=== PATIENT | female | born 1940 | race Caucasian/White ===

== ENCOUNTER → 2018-09-05 | Outpatient (CLI) | payer OTHER ==
[~2018-09-05] MED LIST: ATENOLOL 50 MG50 M1 PO; HYDROCODONE-AP1 EAC6 PO
== END ==
LOC: CAT 10:20
DX: Z13.6 Encounter for screening for cardiovascular disorders (principal); E78.00 Pure hypercholesterolemia, unspecified; Z82.49 Family history of ischemic heart disease and other diseases of the circulatory system

== ENCOUNTER → 2018-09-05 | Outpatient (CLI) | payer OTHER | LOC: RAD 10:07 | DX: J44.9 Chronic obstructive pulmonary disease, unspecified (principal) ==

== ENCOUNTER → 2020-02-14 | Outpatient (CLI) | payer OTHER | LOC: SJCVCIMAG 07:49 | PROVIDERS: ATTEND Internal Medicine Cardiovascular Disease | DX: E04.2 Nontoxic multinodular goiter (principal); Z87.891 Personal history of nicotine dependence ==

== ENCOUNTER → 2020-11-17 | Outpatient (CLI) | payer OTHER | LOC: SJCVCIMAG 11:53 | PROVIDERS: ATTEND Internal Medicine Cardiovascular Disease | DX: I07.1 Rheumatic tricuspid insufficiency (principal); I27.20 Pulmonary hypertension, unspecified; R06.02 Shortness of breath; I10 Essential (primary) hypertension; E78.00 Pure hypercholesterolemia, unspecified; R00.0 Tachycardia, unspecified; E78.5 Hyperlipidemia, unspecified; G47.33 Obstructive sleep apnea (adult) (pediatric); Z79.82 Long term (current) use of aspirin; Z79.899 Other long term (current) drug therapy; Z86.73 Personal history of transient ischemic attack (TIA), and cerebral infarction without residual deficits; Z87.891 Personal history of nicotine dependence; Z82.49 Family history of ischemic heart disease and other diseases of the circulatory system ==

== ENCOUNTER → 2020-12-12 | Outpatient (CLI) | payer OTHER | LOC: SJCVC 10:24 | PROVIDERS: ATTEND Internal Medicine Cardiovascular Disease | DX: I07.1 Rheumatic tricuspid insufficiency (principal); R06.00 Dyspnea, unspecified; R00.0 Tachycardia, unspecified; I77.9 Disorder of arteries and arterioles, unspecified; I10 Essential (primary) hypertension; E78.00 Pure hypercholesterolemia, unspecified; E78.5 Hyperlipidemia, unspecified; R53.83 Other fatigue; G47.33 Obstructive sleep apnea (adult) (pediatric); Z79.82 Long term (current) use of aspirin; Z79.899 Other long term (current) drug therapy; Z86.73 Personal history of transient ischemic attack (TIA), and cerebral infarction without residual deficits; Z87.891 Personal history of nicotine dependence ==

== ENCOUNTER → 2021-02-24 | Outpatient (CLI) | payer OTHER | LOC: SJCVCIMAG 10:09 | PROVIDERS: ATTEND Internal Medicine Cardiovascular Disease | DX: I08.2 Rheumatic disorders of both aortic and tricuspid valves (principal); I10 Essential (primary) hypertension; R00.0 Tachycardia, unspecified; R94.31 Abnormal electrocardiogram [ECG] [EKG]; I49.3 Ventricular premature depolarization; E78.5 Hyperlipidemia, unspecified; I65.23 Occlusion and stenosis of bilateral carotid arteries; Z79.82 Long term (current) use of aspirin; Z79.899 Other long term (current) drug therapy ==

== ENCOUNTER → 2021-03-10 | Outpatient (CLI) | payer OTHER ==
[~2021-03-10] VITALS: Ht 165.1 cm; Wt 77.1 kg
[~2021-03-10] MED LIST changes: +ASA81BEC PO; +BENICAR20 MG PO; +COQ-10100 MG PO; +K2-4545 MCG PO; +MAGNESIUM250 M1 PO; +RESVERATROL50 MG PO; +TOPROL XL50 MG PO; +TORSEMIDE10 MG PO; +VITAMIN A10000 UNI3; +VITAMIN B-121000 MC2 PO; +VITAMIN D31250 MC1 PO; +VITAMIN E1000 UNIT PO
[2021-03-10 08:41] VITALS: BP 118/61
[2021-03-10 08:48] LABS: ABSOLUTE NEUTROPHILS 4.5 thou/uL (1.4-8.2); BASOPHILS 0.7 % (0.0-2.0); EOSINOPHILS 1.3 % (0.0-3.0); HEMATOCRIT 39.7 % (37.0-47.0); HEMOGLOBIN 13.2 gm/dL (12.0-15.0); LYMPHOCYTES 23.8 % (24.0-44.0); MCH 31.5 pg (26.0-34.0); MCHC 33.3 g/dL (28.0-37.0); MCV 94.7 fL (80.0-100.0); MONOCYTES 11.4 % (1.0-8.0); PLATELET COUNT 182 thou/uL (150-400); POLYS 62.8 % (36.0-66.0); RBC 4.19 mil/uL (4.20-5.00); RDW 13.8 % (10.5-14.5); WBC 7.2 thou/uL (4.0-11.0)
[2021-03-10 08:56] LABS: CALCIUM 8.7 mg/dL (8.5-10.1); CREATININE 1.2 mg/dL (0.6-1.0); POTASSIUM 4.2 mmol/L (3.5-5.1)
--- NOTE | 2021-03-10 11:17 | EKG ---
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[facility] 1940 Requested By: Kaleb Kohli Order Number: [id number] MD: Raoul Cade Measurements Intervals [place] Rate: 103 P: 26 WV: 148 QRS: -26 QRSD: 80 T: 10 QT: 333 QTc: 436 Interpretive Statements Sinus tachycardia Inferior infarct, old Compared to ECG 07/28/2009 10:13:42 Myocardial infarct finding now present Sinus rhythm no longer present Electronically Signed On 03-10-2021 11:17:31 CDT by Raoul Cade [email or web address] <ELECTRONICALLY SIGNED> By: Raoul Cade MD, [facility] 03/10/21 1117 5 5 Raoul Cade MD, FACC /EPI
--- NOTE | 2021-03-11 09:00 | CATHLAB ---
[facility] [address] INVASIVE PROCEDURE REPORT Name: JOURDAN YUEN Room #: REG [facility]#: [id number] Admission: 03/10/21 Attend Phys: Kaleb Kohli MD, Discharge: Date of : 40 Report #: [id number] THIS REPORT FOR: cc: Frederick Diaz,Kaleb Crouch MD [facility] ~ APPROVED REPORT Study performed: 03/10/2021 09:23:26 Patient Details Patient Status: Out-Patient Room #: The patient is a 80 year-old female Event Personnel Kaleb Kohli Pulmonology Physician, Kristina Cha RN RN, Bobbi Monson Monitor, Mariel Ny RTR, ALAN Scrub, Catherine Gustafson RTR Scrub Procedures Performed Art Access - R femoral artery* Left Heart Cath w/or w/o Coronaries [id number] [facility] Aortogram Abdominal Peripheral Angio 954926 75610 Initial Mod Sed Same Phys/QHP Gr5y 665488 26540 Mod Sed Same Phys/QHP Ea 643576 Hemostasis w/ Mynx Indication Chest pain Procedure Narrative The Right Groin^ was infiltrated with 1% Lidocaine subcutaneous anesthesia. A PINNACLE 6FR Sheath #[id number] sheath was inserted into the RFA^. Coronary angiography was performed using coronary diagnostic catheters. The right coronary system was accessed and visualized with a JR4 catheter. The left coronary system was accessed and visualized with a JL4 catheter. The left ventricle was accessed and visualized with a STR PIG catheter. There was no hematoma. Intraoperative Conscious Sedation Sedation start time: 1001 Case end Time: 1030 Fentanyl 50 mcg Versed 1 mg Fluoro Time: 1.60 minutes [facility] [address] [place] [address] INVASIVE PROCEDURE REPORT Name: JOURDAN YUEN [id number] Admission: 03/10/21 Attend Phys: Kaleb Kohli, Discharge: Date of : 40 Report #: [id number] Dose: DAP 3057.10 cGycm2 344 mGy Contrast Type and Amount: Omnipaque 94 ml Hemodynamics The aortic pressure is 173/85 mmHg with a mean of 122 mmHg. The left ventricular pressure is 188/7 mmHg with a mean of mmHg. The left ventricular end diastolic pressure is 46 mmHg. Conclusion #1 Normal left ventricular size and systolic function EF 60%. 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 #3 the LAD extends around the apex it is tortuous but widely patent no occlusive disease. #4 and essentially codominant circumflex system is widely patent there is a high rising OM or ramus branch also widely patent and large in distribution. #5 there is a small but somewhat of a codominant PDA given off the right coronary artery with minimal disease. #6 the abdominal aortogram is mildly tortuous aorta but no aneurysm. Appears to have mild disease in the bilateral renal arteries. Recommendations and plan: Continue aggressive risk factor modification no indication for coronary intervention. <ELECTRONICALLY SIGNED> By: Kaleb Kohli MD, [facility] 03/11/21899 9 9 Kaleb Kohli MD, [facility] /INF
== END | disposition home or self-care (01) ==
LOC: CATH 07:29
PROVIDERS: ATTEND Internal Medicine Cardiovascular Disease
DX: R07.9 Chest pain, unspecified (principal); I25.10 Atherosclerotic heart disease of native coronary artery without angina pectoris; I70.1 Atherosclerosis of renal artery; I10 Essential (primary) hypertension; E78.00 Pure hypercholesterolemia, unspecified; E78.5 Hyperlipidemia, unspecified; F41.9 Anxiety disorder, unspecified; G47.33 Obstructive sleep apnea (adult) (pediatric); Z98.890 Other specified postprocedural states; Z79.899 Other long term (current) drug therapy; Z98.51 Tubal ligation status; Z86.73 Personal history of transient ischemic attack (TIA), and cerebral infarction without residual deficits; Z79.01 Long term (current) use of anticoagulants

== ENCOUNTER → 2021-03-20 | Outpatient (CLI) | payer OTHER | LOC: SJCVCIMAG 07:58 | PROVIDERS: ATTEND Internal Medicine Cardiovascular Disease | DX: I65.23 Occlusion and stenosis of bilateral carotid arteries (principal); E03.9 Hypothyroidism, unspecified; G47.33 Obstructive sleep apnea (adult) (pediatric); E78.5 Hyperlipidemia, unspecified; F41.9 Anxiety disorder, unspecified; E78.00 Pure hypercholesterolemia, unspecified; Z79.82 Long term (current) use of aspirin; Z79.899 Other long term (current) drug therapy; Z87.891 Personal history of nicotine dependence ==

== ENCOUNTER 2021-07-22 13:14 | Emergency (ER) | payer OTHER ==
[~2021-07-22] VITALS: Ht 170.2 cm; Wt 90.7 kg
[2021-07-22 14:10] LABS: ABSOLUTE NEUTROPHILS 3.4 thou/uL (1.4-8.2); BASOPHILS 0.9 % (0.0-2.0); EOSINOPHILS 1.1 % (0.0-3.0); HEMATOCRIT 42.2 % (37.0-47.0); HEMOGLOBIN 14.1 gm/dL (12.0-15.0); MCHC 33.5 g/dL (28.0-37.0); MCV 92.5 fL (80.0-100.0); MONOCYTES 10.9 % (1.0-8.0); PLATELET COUNT 179 thou/uL (150-400); POLYS 58.1 % (36.0-66.0); RBC 4.56 mil/uL (4.20-5.00); RDW 13.7 % (10.5-14.5); WBC 5.9 thou/uL (4.0-11.0)
[2021-07-22 14:19] LABS: CALCIUM 9.2 mg/dL (8.5-10.1); CREATININE 1.1 mg/dL (0.6-1.0); POTASSIUM 4.1 mmol/L (3.5-5.1)
[2021-07-22 14:29] LABS: ALBUMIN 3.8 g/dL (3.4-5.0); MAGNESIUM 2.2 mg/dL (1.8-2.4); TOTAL BILIRUBIN 0.6 mg/dL (0.2-1.0); TOTAL PROTEIN 7.5 g/dL (6.4-8.2)
[2021-07-22 16:46] VITALS: BP 163/90
--- NOTE | 2021-07-23 07:51 | EKG ---
[place] [address] [employer] [place] [address] ELECTROCARDIOGRAM REPORT Name: JOURDAN YUEN Room #: [facility]#: [id number] Admission: 07/22/21 Attend Phys: Discharge: 07/22/21 Date of : 40 Report #: [id number] [facility] ED Test Date: 2021-07-22 Test Time: 14:52:34 Pat Name: JOURDAN YUEN Department: Room: Gender: F Tub Mender: DIVYA : 1940 Requested By: Tammy Land Order Number: [id number] MD: Raoul Cade Measurements Intervals [place] Rate: 109 P: 71 FL: 146 QRS: -20 QRSD: 82 T: 17 QT: 345 QTc: 465 Interpretive Statements Sinus tachycardia with irregular rate Inferior infarct, old Compared to ECG 03/10/2021 08:26:42 No significant changes Electronically Signed On 07-23-2021 7:50:51 ACCOUNTANCY PROFESSOR by Raoul Cade [email or web address] <ELECTRONICALLY SIGNED> By: Raoul Cade MD, [facility] 07/23/21 0750 1452 1452 Raoul Cade MD, FACC /EPI
== END 2021-07-22 16:45 | disposition home or self-care (01) ==
LOC: ER 13:14
PROVIDERS: Nurse Practitioner
DX: I10 Essential (primary) hypertension (principal); R00.0 Tachycardia, unspecified; F41.9 Anxiety disorder, unspecified; Z98.51 Tubal ligation status; Z79.899 Other long term (current) drug therapy

== ENCOUNTER → 2021-09-04 | Outpatient (CLI) | payer OTHER | LOC: SJCVC 12:51 | PROVIDERS: ATTEND Internal Medicine Cardiovascular Disease | DX: Z01.818 Encounter for other preprocedural examination (principal); I25.10 Atherosclerotic heart disease of native coronary artery without angina pectoris; I49.1 Atrial premature depolarization; R94.31 Abnormal electrocardiogram [ECG] [EKG]; I10 Essential (primary) hypertension; E78.00 Pure hypercholesterolemia, unspecified; I77.9 Disorder of arteries and arterioles, unspecified; I38 Endocarditis, valve unspecified; R00.0 Tachycardia, unspecified; G45.9 Transient cerebral ischemic attack, unspecified; F41.9 Anxiety disorder, unspecified; F32.A Depression, unspecified; G47.33 Obstructive sleep apnea (adult) (pediatric); I70.1 Atherosclerosis of renal artery; Z87.891 Personal history of nicotine dependence; Z72.89 Other problems related to lifestyle; Z79.82 Long term (current) use of aspirin; Z79.899 Other long term (current) drug therapy; Z82.49 Family history of ischemic heart disease and other diseases of the circulatory system ==